=== PATIENT | female | born 1975 ===

== ENCOUNTER 2017-05-07 07:57 | Day surgery (SDC) | payer BC ==
[2017-05-04 08:43] VITALS: BMI 27.4
[2017-05-07] MEDS ORDERED: Propofol 10 mg/ml Inj (20 ML) ONE (08:28)
[2017-05-07] MEDS ORDERED: Midazolam 2 MG/2 ML VIAL ONE (08:28)
[2017-05-07 08:35] LABS: BASO # 0.01 K/mm3 (0.0-2.0); BASO % 0.2 % (0.0-3.0); EOS # 0.1 (0.0-0.7); GRAN # 3.71 (1.4-6.5); GRAN % 59.9 % (50.0-68.0); HEMATOCRIT 40.7 % (36.0-48.0); LYMPH % 32.8 % (22.0-35.0); MEAN CELL VOLUME 75.8 fl (80.0-105.0); MEAN CORPUSCULAR HEMOGLOBIN 25.5 pg (25.0-35.0); MEAN CORPUSCULAR HGB CONC 33.7 g/dl (31.0-37.0); MEAN PLATELET VOLUME 10.9 fl (7.0-11.0); MONO # 0.4 (0.1-0.6); MONO % 6.1 % (1.0-6.0); WHITE BLOOD COUNT 6.2 10^3/ul (4.5-11.0)
[2017-05-07 08:46] LABS: INR 1.01 (0.93-1.08); PARTIAL THROMBOPLASTIN TIME 29.2 Seconds (23.7-30.8)
[2017-05-07] MEDS ORDERED: Sodium Chloride 0.9% 1,000 ML IV SCH (09:30)
[2017-05-07 09:35] VITALS: TEMP 98
[2017-05-07 09:57] VITALS: O2SAT 100
[2017-05-07 10:54] VITALS: BP 103/76; PULSE 68; RESP 18
== END 2017-05-07 10:58 | disposition home or self-care (01) ==
LOC: ENDO 07:57
PROVIDERS: ATTEND Internal Medicine Gastroenterology
DX: K20.9 Esophagitis, unspecified (principal); K22.10 Ulcer of esophagus without bleeding; K29.50 Unspecified chronic gastritis without bleeding; K29.80 Duodenitis without bleeding; K44.9 Diaphragmatic hernia without obstruction or gangrene
CPT/HCPCS: 36415; 43239; 84703; 85025; 85610; 85730; 88305; 88312; 88342; J2250; J2704; J7040 ×2